=== PATIENT | female | born 1970 | race Caucasian/White ===

== ENCOUNTER 2020-08-17 23:40 | Inpatient (IN) | payer OTHER ==
[~2020-08-17] VITALS: Ht 167.6 cm; Wt 77.1 kg
[2020-08-18 03:13] LABS: HEMOGLOBIN 12.9 gm/dl (12.3-15.3); RED BLOOD COUNT 4.39 M/UL (4.00-5.10); WHITE BLOOD COUNT 10.4 K/UL (4.5-11.0)
[2020-08-18 04:03] LABS: BUN/CREATININE RATIO 19 (0-10)
[2020-08-18] MEDS ORDERED: CLONAZEPAM1 MG PO (11:12)
[2020-08-18] MEDS ORDERED: PROZAC20 MG PO (11:13)
[2020-08-18] MEDS ORDERED: BUPRENORPHIN-N1 EACH SL (11:38)
[2020-08-20 04:35] LABS: HEMOGLOBIN 12.7 gm/dl (12.3-15.3); RED BLOOD COUNT 4.4 M/UL (4.00-5.10); WHITE BLOOD COUNT 8.5 K/UL (4.5-11.0)
[2020-08-20 05:08] LABS: BUN/CREATININE RATIO 19 (0-10)
[2020-08-20] MEDS ORDERED: BACTRIM DS TAB1 EACH PO (11:46)
[2020-08-20 15:11] LABS: TREPONEMA PALLIDUM ANTIBODIES Non Reactive (Non Reactive)
[2020-08-21 21:12] LABS: CHLAMYDIA TRACHOMATIS, NAA Negative (Negative); NEISSERIA GONORRHOEAE, NAA Negative (Negative)
== END 2020-08-20 15:43 | disposition home or self-care (01) | DRG 580 ==
LOC: ER1 23:40 → CDU 08-18 04:16 → MED SURG 4 08-18 04:16
PROVIDERS: Internal Medicine; Physician Assistant; Surgery; ADMIT Internal Medicine
PROC: 0J9G0ZZ Drainage of Right Lower Arm Subcutaneous Tissue and Fascia, Open Approach (ICD-10-PCS; 2020-08-19)
PROC: 0J9J0ZZ Drainage of Right Hand Subcutaneous Tissue and Fascia, Open Approach (ICD-10-PCS; principal; 2020-08-19 15:00)
DX: L03.113 Cellulitis of right upper limb (principal); E87.1 Hypo-osmolality and hyponatremia; L02.413 Cutaneous abscess of right upper limb; F19.10 Other psychoactive substance abuse, uncomplicated; F41.9 Anxiety disorder, unspecified; F32.9 Major depressive disorder, single episode, unspecified; F11.10 Opioid abuse, uncomplicated; F12.10 Cannabis abuse, uncomplicated; D64.9 Anemia, unspecified; F17.200 Nicotine dependence, unspecified, uncomplicated; Z86.19 Personal history of other infectious and parasitic diseases; Z83.3 Family history of diabetes mellitus
CPT/HCPCS: 36415; 73200; 80048; 80053; 80202; 80307; 81001; 82550; 82553; 83605; 84484; 85025; 85027; 85652; 86140; 86780; 87040; 87086; 96365; 96368; 99284; J0592; J1100; J1650; J1885; J2001; J2250; J2270; J2405; J2543; J2704; J3010; J3370; J7030; J7040; J7070; J7120; U0002

== ENCOUNTER → 2021-10-28 | Outpatient (CLI) | payer OTHER ==
[~2021-10-28] MED LIST: BACTRIM DS TAB1 EACH PO; BUPRENORPHIN-N1 EACH SL; CLONAZEPAM1 MG PO; PROZAC20 MG PO
== END ==
LOC: LAB 15:08
DX: R76.11 Nonspecific reaction to tuberculin skin test without active tuberculosis (principal)
CPT/HCPCS: 71046